=== PATIENT | male | born 1975 | race American Indian/Alaskan Native ===

== ENCOUNTER 2016-02-25 07:23 | Emergency (ER) | payer SELFPAY ==
[2016-02-25 07:45] VITALS: BP 142/108
[2016-02-25 08:07] LABS: Basophils % (Auto) 0.4 % (0.0-1.8); Eosinophils % (Auto) 0.9 % (0.0-4.3); Hematocrit 47.5 % (35.5-45.6); Hemoglobin 15.5 gm/dl (11.8-15.2); Mean Corpuscular HGB Conc 33 % (32-34); Mean Corpuscular Hemoglobin 28 pg (28-32); Mean Corpuscular Volume 84 fl (84-94); Platelet Count 278 K/mm3 (140-440); Red Blood Count 5.64 M/mm3 (3.65-5.03); Red Cell Distribution Width 15.4 % (13.2-15.2); White Blood Count 7.6 K/mm3 (4.5-11.0)
[2016-02-25 08:24] LABS: BUN/Creatinine Ratio 15.45; Blood Urea Nitrogen 17 mg/dL (9-20); Calcium 8.8 mg/dL (8.4-10.2); Carbon Dioxide 23 mmol/L (22-30); Chloride 102.6 mmol/L (98-107); Glucose 106 mg/dL (75-100); Potassium 3.8 mmol/L (3.6-5.0); Sodium 140 mmol/L (137-145)
[2016-02-25 08:28] LABS: Anion Gap 18 mmol/L
--- NOTE | 2016-02-25 09:24 | XRay Report ---
ROUTINE CHEST, TWO VIEWS: PA and lateral views demonstrate the heart and mediastinal contour to be of normal size and shape. The lungs are clear and fully expanded and the soft tissues and bony structures are normal. IMPRESSION: Normal study.
--- NOTE | 2016-02-26 11:57 | ED Elopement Review ---
ED Pt Elopement review - Results review Lab results: Laboratory Tests 02/25/16 02/25/16 07:53 07:53 WBC 7.6 RBC 5.64 H Hgb 15.5 H Hct 47.5 H MCV 84 MCH 28 MCHC 33 RDW 15.4 H Plt Count 278 Lymph % (Auto) 18.8 [place] % (Auto) 12.1 H Eos % (Auto) 0.9 Baso % (Auto) 0.4 Lymph # 1.4 [place] # 0.9 H Eos # 0.1 Baso # 0.0 Seg Neutrophils % 67.8 Seg Neutrophils # 5.2 Sodium 140 Potassium 3.8 Chloride 102.6 Carbon Dioxide 23 Anion Gap 18 BUN 17 Creatinine 1.1 Estimated GFR > 60 BUN/Creatinine Ratio 15.45 Glucose 106 H Calcium 8.8 Troponin T < 0.010 - Call Back decision Pt Call Back Decision: No action required
== END 2016-02-25 07:54 | disposition left against medical advice (07) ==
LOC: ED 07:23
DX: R07.9 Chest pain, unspecified (principal); R53.83 Other fatigue; Z53.21 Procedure and treatment not carried out due to patient leaving prior to being seen by health care provider
CPT/HCPCS: 36415; 71020; 80048; 84484; 85025; 93005; 93010

== ENCOUNTER 2017-07-03 11:22 | Emergency (ER) | payer SELFPAY ==
[2017-07-03 11:38] VITALS: BP 156/110
== END 2017-07-03 11:45 | disposition left against medical advice (07) ==
LOC: ED 11:22
DX: I10 Essential (primary) hypertension (principal); Z53.21 Procedure and treatment not carried out due to patient leaving prior to being seen by health care provider